=== PATIENT | female | born 1980 | race Caucasian/White ===

== ENCOUNTER 2017-01-16 11:24 | Emergency (ER) | payer BC ==
[2017-01-16 11:52] LABS: Hematocrit 40.8 % (37.0-47.0); Hemoglobin 14.4 gm/dL (12.5-16.0); Mean Cell Volume 85.9 fl (78-100); Mean Corpuscular Hemoglobin 30.3 pg (27-31); Mean Corpuscular Hgb Conc 35.3 g/dl (32-36); Mean Platelet Volume 10.5 fl (6.0-9.5); Neutrophil # 7.9 K/mm3 (1.3-6.0); Neutrophil % 61.9 % (42-75.0); Platelet Count 320 K/mm3 (150-450); Red Blood Count 4.75 M/mm3 (4.2-5.4); Red Cell Distribution Width 12.7 % (11.5-14.0); White Blood Count 12.7 K/mm3 (4.0-10.5)
[2017-01-16 11:54] LABS: Urine Bilirubin Negative (NEGATIVE); Urine Blood Negative /ul (NEGATIVE); Urine Ketone Negative (NEGATIVE); Urine Nitrite Negative (NEGATIVE); Urine Protein Negative (NEGATIVE); Urine Specific Gravity 1.015 SP.GR. (1.005-1.010); Urine Urobilinogen Normal (NORMAL)
[2017-01-16 12:00] LABS: Urine Appearance Clear; Urine Color Yellow
[2017-01-16 12:01] LABS: Urine Bacteria TRACE; Urine RBC None Seen /hpf (0-5)
[2017-01-16 12:08] LABS: Albumin * 3.9 gm/dl (3.4-5.0); Anion Gap 13.9 mmol/L (6.8-13.8); BUN/Creatinine Ratio 12.1 (9.0-21.6); Bilirubin, Total 0.5 mg/dL (0.0-1.1); Ca. Corrected For Albumin 9.4 mg/dL (8.4-10.2); Calcium * 9.6 mg/dL (7.9-10.9); Carbon Dioxide 28.3 mmol/L (24-32.6); Potassium 4.2 mmol/L (3.4-4.6); Total Protein 8.1 gm/dL (6.2-8.2)
--- NOTE | 2017-01-16 12:25 | ERNOTE ---
Abdominal HPI - General Chief Complaint: Abdominal Pain Time Seen by Provider: 01/16/17 11:54 Source: patient Exam Limitations: no limitations - Immun/Allergies/Home Medications Immunizatons: IMMUNIZATION HX History of Influenza Vaccine Yes Allergies/Adverse Reactions: Allergies No Known Allergies Allergy (Unverified 01/16/17 11:34) Home Medications: HOME MEDICATIONS Ciprofloxacin HCl [Cipro] 500 mg PO BID #20 tab 01/16/17 [Last Taken Unknown] Lisinopril [Zestril] 30 mg PO DAILY 01/16/17 [Last Taken Unknown] metFORMIN HCL [Glucophage] 1,000 mg PO BIDWM 01/16/17 [Last Taken Unknown] sitaGLIPtin PHOSPHATE [Januvia] 100 mg PO DAILY 01/16/17 [Last Taken Unknown] - History of Present Illness Narrative: Patient was at work yesterday when she started to not feel well. It was very hot and they only had fans at work. She hadn't had much too eat and about 2 bottles (24oz) of water to drink. She started to feel like something was stuck in her chest ( "like I sometimes gets when I eat something wrong"), she felt light headed and nauseated. She went home to rest, the bolus feeling in the chest resolved after burping. During the night she had two large loose BMs and has mild diffuse abdominal aching. She went to her doctors office and was send to the ER for evaluation. She has occasional abdominal discomfort when eating the wrong food, but no persistent problems, no prior surgeries. She was diagnosed with diabetes and started on diabetic medication about six weeks ago. She initially had loose stools with those but those symptoms resolved. Review of Systems - Review of Systems Constitutional: Absent: recent illness, fever, chills, weight loss ENT: Absent: sore throat Respiratory: Absent: shortness of breath, cough Cardiology: Present: See HPI Gastrointestinal/Abdominal: Present: See HPI Genitourinary: Present: other - regular periods, sexually active with female partner. Absent: frequency, dysuria Skin: Absent: rash Neurological: Present: headache - intermittent not now - Patient's Past Medical History Patient History - Medical: Diabetes Type 2, Migraines Patient History - Cardiac/Respiratory: Hypertension Patient History - Cancer: No Hx of Cancer Patient History - Surgical Procedures: No surgical history Patient History - Other: None - Social History Living Situations: home Psych History: No pertinent hx Alcohol Use: none Drug Use: none - Immunizations History of Influenza Vaccine: Yes Physical Exam - Physical Exam General Appearance: Present: wd/wn, alert, no apparent distress, obese Ears, Nose, Throat: Present: normal pharynx Respiratory: Present: no respiratory distress, normal breath sounds, no accessory muscle use, lungs clear Cardiovascular/Chest: Present: regular rate, rhythm, no murmur Gastrointestinal/Abdominal: Present: normal bowel sounds, nondistended, soft, tenderness - minimal, diffuse Back Exam: Present: no CVA tenderness Neurological Exam: Present: alert, oriented, normal mood/affect, no motor/ sensory deficits ED Progress - Results and Orders Patient's Lab Results:: I have reviewed the patient's lab results. - Vital Signs Patient's Vital Signs:: I have reviewed the patient's vital signs. Vital Signs: Vital Signs 01/16/17 11:28 Temperature 35.7 C L Pulse Rate 72 Respiratory 12 Rate Blood Pressure 140/87 O2 Sat by Pulse 98 Oximetry - EKG EKG: NSR, no ST T wave changes EKG read: Interp. by me - X-Ray X-Ray #1 X-Ray: abdomen - non specific bowel gas pattern Interpretation: Reviewed by me - Progress/Reassessment Chief Complaint: Abdominal Pain Progress Note-Subjective: 01/16/17 12:58 discussed results with patient, Departure - Departure Clinical Impression: UTI (urinary tract infection) Qualifiers: Urinary tract infection type: site unspecified Hematuria presence: with hematuria Qualified Code(s): N39.0 - Urinary tract infection, site not specified Disposition: Home self-care Condition: Good Instructions: Urinary Tract Infection, Adult, [id number], Form - Excuse from Work, School, or Physical Activity Referrals: Magda Villegas DO [Primary Care Provider] - Prescriptions: Ciprofloxacin HCl [Cipro] 500 mg PO BID #20 tab
[2017-01-16 13:12] VITALS: BP 124/79
== END 2017-01-16 13:16 | disposition home or self-care (01) ==
LOC: ER 11:24
DX: N39.0 Urinary tract infection, site not specified (principal)